=== PATIENT | female | born 1985 | race Caucasian/White ===

== ENCOUNTER 2016-05-24 09:33 | Observation (INO) | payer MEDICAID ==
[~2016-05-24 09:33] MED LIST: AMOXICILLIN200 M1 PO; AUGMENTIN 875-1 EAC2 PO; BACTRIM DS TABL1 TAB PO; CIPRO250 M1 PO; CIPRO500 M2 PO; CLEOCIN HCL300 M1 PO; DIFLUCAN150 M1 PO; DIFLUCAN150 MG PO; EXCEDRIN CAPLE1 EACH PO; HYDROXYZINE HCL50 MG PO; KEFLEX500 MG PO; MACROBID 100 M100 M1 PO; MOTRIN800 MG PO; NO HOME MEDICATION XX; NORCO 5-325 TA1 EACH PO; NORCO 5/325 TAB1 TAB PO; ORTHO TRI-7 DAYSX 3; PRENATAL1 EACH PO; PYRIDIUM200 MG PO; TRIPLE NIPPLE TP; TYLENOL #31 TA1 PO; TYLENOL #31 TAB PO; VITAMIN D5000 UNIT PO; ZITHROMAX250 M1 PO
[2016-05-24 11:56] LABS: URINE BILIRUBIN NEGATIVE (NEG); URINE BLOOD MODERATE (NEG); URINE GLUCOSE (UA) NEGATIVE (NEG); URINE KETONE NEGATIVE (NEG); URINE LEUKOCYTE ESTERASE NEGATIVE (NEG); URINE NITRITE NEGATIVE (NEG); URINE PROTEIN NEGATIVE (NEG)
[2016-05-24 11:58] LABS: URINE APPEARANCE HAZY; URINE COLOR PALE YELLOW
[2016-05-24 12:11] LABS: URINE EPITHELIAL CELLS 0-3 /[HPF] (0-10); URINE WBC 0 /[HPF] (0-5)
[2016-05-24 12:33] LABS: BASO % 0.1 % (0-2); EOS % 0.2 % (0-7); HCT-HEMATOCRIT 30.8 % (34.0-49.0); HGB-HEMOGLOBIN 10.1 gm/dl (12.0-15.5); LYMPH % 10.8 % (20-45); LYMPH ABSOLUTE COUNT 1.1 tho/cmm (0.8-4.5); MCH (MEAN CORPUSCULAR HGB) 29.8 pg (28.0-32.0); MCHC MEAN CORPUSCULAR HGB CONC 32.8 % (32.0-36.0); MCV (MEAN CELL VOLUME) 90.9 fl (82.0-96.0); MEAN PLATELET VOLUME 9.1 cmc (9.4-12.4); MONO % 4.6 % (0-12); MONOCYTE ABSOLUTE COUNT 0.5 tho/cmm (0.0-1.2); NEUTROPHIL ABSOLUTE COUNT 8.4 tho/cmm (1.6-8.0); NEUTROPHIL-AUTOMATED 8.4 tho/cmm (1.6-8.0); NEUTROPHILS % 83.3 % (40-80); PLATELET COUNT 242 tho/cmm (150-450); RED BLOOD COUNT 3.39 mil/cmm (4.00-5.20); RED CELL DISTRIBUTION WIDTH 13.2 % (12.4-16.4); WHITE BLOOD COUNT 10.1 tho/cmm (4.0-10.0)
== END 2016-05-24 14:20 ==
LOC: EDMED 09:33 → LDR 09:51
PROVIDERS: ADMIT Specialist
DX: O21.2 Late vomiting of pregnancy (principal); O99.89 Other specified diseases and conditions complicating pregnancy, childbirth and the puerperium; R19.7 Diarrhea, unspecified; Z3A.29 29 weeks gestation of pregnancy
CPT/HCPCS: J2405

== ENCOUNTER 2016-07-30 08:18 | Inpatient (IN) | payer MEDICAID ==
[2016-07-30] MEDS ORDERED: NO HOME MEDICATION (08:40)
[2016-07-30 08:54] LABS: BASO % 0.1 % (0-2); EOSINOPHIL ABSOLUTE COUNT 0.1 tho/cmm (0.0-0.7); HCT-HEMATOCRIT 33.5 % (34.0-49.0); HGB-HEMOGLOBIN 11.2 gm/dl (12.0-15.5); IMMATURE GRANULOCYTES ABSOLUTE 0.04 tho/cmm (0-0.03); IMMATURE GRANULOCYTES PERCENT 0.4 % (0-0.3); LYMPH % 23.3 % (20-45); LYMPH ABSOLUTE COUNT 2.1 tho/cmm (0.8-4.5); MCH (MEAN CORPUSCULAR HGB) 29.1 pg (28.0-32.0); MCHC MEAN CORPUSCULAR HGB CONC 33.4 % (32.0-36.0); MEAN PLATELET VOLUME 9.7 cmc (9.4-12.4); MONO % 7.6 % (0-12); MONOCYTE ABSOLUTE COUNT 0.7 tho/cmm (0.0-1.2); NEUTROPHILS % 67.6 % (40-80); PLATELET COUNT 281 tho/cmm (150-450); RED BLOOD COUNT 3.85 mil/cmm (4.00-5.20); RED CELL DISTRIBUTION WIDTH 13.2 % (12.4-16.4); WHITE BLOOD COUNT 8.9 tho/cmm (4.0-10.0)
[2016-07-31 08:00] LABS: HCT-HEMATOCRIT 32.9 % (34.0-49.0); HGB-HEMOGLOBIN 10.8 gm/dl (12.0-15.5); MCV (MEAN CELL VOLUME) 87.7 fl (82.0-96.0); RED CELL DISTRIBUTION WIDTH 13.5 % (12.4-16.4)
[2016-08-02] MEDS ORDERED: VISTARIL25 M1 PO (12:35)
[2016-08-02] MEDS ORDERED: IBUPROFEN800 M1 PO (12:35)
[2016-08-02] MEDS ORDERED: PRENATAL-U CAPS1 CAP PO (12:36)
== END 2016-08-02 15:05 | DRG 766 ==
LOC: LDR 08:18 → OBGE 12:19
PROVIDERS: ADMIT Specialist
PROC: 10D00Z1 Extraction of Products of Conception, Low, Open Approach (ICD-10-PCS; principal; 2016-07-30)
DX: O34.211 Maternal care for low transverse scar from previous cesarean delivery (principal); E03.9 Hypothyroidism, unspecified; Z3A.39 39 weeks gestation of pregnancy; Z37.0 Single live birth; O99.284 Endocrine, nutritional and metabolic diseases complicating childbirth
CPT/HCPCS: J0690; J1170; J2590; J2795; J7050

== ENCOUNTER 2016-10-21 11:53 | Emergency (ER) | payer SELFPAY ==
[~2016-10-21] VITALS: Ht 157.5 cm
[~2016-10-21 11:53] MED LIST changes: +IBUPROFEN800 M1 PO; +NO HOME MEDICATION; +PRENATAL-U CAPS1 CAP PO; +VISTARIL25 M1 PO
[2016-10-21] MEDS ORDERED: NO HOME MEDICATION XX (15:01)
[2016-10-21] MEDS ORDERED: AMOXICILLIN875 M1 PO (16:06)
== END 2016-10-21 16:48 ==
LOC: EDMED 11:53
DX: J02.0 Streptococcal pharyngitis (principal)